=== PATIENT | female | born 1985 | race African-American/Black ===

== ENCOUNTER 2019-03-14 20:55 | Emergency (ER) | payer MEDICAID ==
[~2019-03-14] VITALS: Ht 170.2 cm; Wt 68.0 kg
[2019-03-14] MEDS ORDERED: ACETAMINOPHEN 325MG TABLET PO ONE (23:45)
[2019-03-15 00:03] LABS: BASOPHILS % 0.9 % (0.0-2.0); HEMATOCRIT. 37.6 % (36.0-48.0); HEMOGLOBIN. 12.3 g/dL (12.0-16.0); LYMPHOCYTES % 43.6 % (20.0-50.0); MEAN CORPUSCULAR HEMOGLOBIN 27.1 pg (28.0-32.0); MEAN CORPUSCULAR VOLUME 82.9 fL (81.0-99.0); MEAN PLATELET VOLUME 9.5 fl (7.4-10.4); MONOCYTES % 10.1 % (2.0-8.0); NEUTROPHILS % 44.4 % (40.0-76.0); PLATELET 170 x1000/uL (130-400); RED BLOOD CELL COUNT 4.53 mill/uL (4.2-5.4); RED CELL DISTRIBUTION WIDTH 14.6 % (11.6-14.6)
[2019-03-15 00:06] LABS: CHLORIDE 108 mEq/L (98-107)
[2019-03-15] MEDS ORDERED: CEFTRIAXONE SODIUM 250 MG/VIAL IM ONE (00:15)
[2019-03-15] MEDS ORDERED: AZITHROMYCIN 500 MG TABLET PO ONE (00:15)
[2019-03-15] MEDS ORDERED: DIPHENHYDRAMINE 25MG CAPSULE PO ONE (00:15)
[2019-03-15 00:18] LABS: HCG SCREEN NEGATIVE
[2019-03-15 00:51] LABS: CLARITY URINE CLEAR (CLEAR); COLOR URINE YELLOW (YELLOW); KETONES URINE NEGATIVE (NEGATIVE); LEUKOCYTE ESTERASE URINE TRACE (NEGATIVE); NITRITE URINE NEGATIVE (NEGATIVE); OCCULT BLOOD URINE NEGATIVE (NEGATIVE); PH URINE 6.5 (4.5-8.0); PROTEIN URINE NEGATIVE (NEGATIVE); SPECIFIC GRAVITY URINE 1.024 (1.005-1.030)
[2019-03-15 12:50] VITALS: BP 118/80
[2019-03-18 04:21] LABS: CHLAMYDIA TRACHOMATIS NAA Negative (Negative); NEISSERIA GONORRHOEAE NAA Negative (Negative)
== END 2019-03-15 13:00 | disposition home or self-care (01) ==
LOC: ER 20:55
DX: S60.511A Abrasion of right hand, initial encounter (principal); N76.0 Acute vaginitis; N39.0 Urinary tract infection, site not specified; R07.89 Other chest pain; J45.909 Unspecified asthma, uncomplicated; I10 Essential (primary) hypertension; R01.1 Cardiac murmur, unspecified; F17.200 Nicotine dependence, unspecified, uncomplicated; Z88.5 Allergy status to narcotic agent; Z91.040 Latex allergy status; Y04.0XXA Assault by unarmed brawl or fight, initial encounter; Y93.89 Activity, other specified; Y92.89 Other specified places as the place of occurrence of the external cause; Y99.8 Other external cause status
CPT/HCPCS: 36415; 71045; 80053; 81003; 81025; 83690; 84703; 85025; 87210; 87491; 87591; 93005; 96372; 99284; J0696; Q0163; Z7610

== ENCOUNTER 2019-03-19 23:16 | Emergency (ER) | payer MEDICAID | END 2019-03-20 00:31 | disposition left against medical advice (07) | LOC: ER 23:16 | DX: M79.18 Myalgia, other site (principal); Z53.21 Procedure and treatment not carried out due to patient leaving prior to being seen by health care provider ==

== ENCOUNTER 2019-07-28 02:00 | Emergency (ER) | payer MEDICAID ==
[~2019-07-28] VITALS: Ht 170.2 cm; Wt 78.0 kg
[2019-07-28] MEDS ORDERED: SODIUM CHLORIDE 0.9% 1,000 ML IV ONE (02:43)
[2019-07-28] MEDS ORDERED: DIPHENHYDRAMINE 50MG/ML VIAL IV ONE (02:45)
[2019-07-28] MEDS ORDERED: METOCLOPRAMIDE HCL 10MG/2ML VIAL IV ONE (02:45)
[2019-07-28] MEDS: LOPERAMIDE HCL 2MG CAPSULE PO PRN ×2 (03:26→04:49)
[2019-07-28] MEDS ORDERED: HYDROCODONE/ACETAMINOPHEN 5/325MG TABLET PO ONE (05:30)
[2019-07-28 12:13] VITALS: BP 115/60
== END 2019-07-28 12:16 | disposition home or self-care (01) ==
LOC: ER 02:00
DX: R19.7 Diarrhea, unspecified (principal); I10 Essential (primary) hypertension; E11.9 Type 2 diabetes mellitus without complications; J45.909 Unspecified asthma, uncomplicated; F31.9 Bipolar disorder, unspecified; Z91.040 Latex allergy status; Z88.6 Allergy status to analgesic agent
CPT/HCPCS: 96374; 96375; 99283; J1200; J2765; J7030

== ENCOUNTER 2019-07-28 14:35 | Emergency (ER) | payer MEDICAID ==
[~2019-07-28] VITALS: Ht 172.7 cm; Wt 72.0 kg
[2019-07-28 14:55] VITALS: BP 137/75
[2019-07-28] MEDS ORDERED: NAPROXEN 250MG TABLET PO ONE (15:45)
== END 2019-07-28 16:18 | disposition home or self-care (01) ==
LOC: ER 14:35
DX: G43.909 Migraine, unspecified, not intractable, without status migrainosus (principal); E11.9 Type 2 diabetes mellitus without complications; I10 Essential (primary) hypertension; F31.9 Bipolar disorder, unspecified; J45.909 Unspecified asthma, uncomplicated; Z88.6 Allergy status to analgesic agent; Z91.040 Latex allergy status
CPT/HCPCS: 99283

== ENCOUNTER 2019-07-28 16:55 | Emergency (ER) | payer MEDICAID ==
[~2019-07-28] VITALS: Ht 167.6 cm; Wt 74.0 kg
[2019-07-28] MEDS ORDERED: ASPIRIN 81MG TABLET PO ONE (18:30)
[2019-07-28 18:59] LABS: BASOPHILS % 0.8 % (0.0-2.0); EOSINOPHILS % 0.7 % (0.0-5.0); HEMOGLOBIN. 12.9 g/dL (12.0-16.0); LYMPHOCYTES % 43.7 % (20.0-50.0); MEAN CORPUSCULAR HEMOGLOBIN 27.7 pg (28.0-32.0); MEAN CORPUSCULAR VOLUME 83.5 fL (81.0-99.0); MEAN PLATELET VOLUME 9.5 fl (7.4-10.4); MONOCYTES % 10.8 % (2.0-8.0); PLATELET 188 x1000/uL (130-400); RED BLOOD CELL COUNT 4.67 mill/uL (4.2-5.4); RED CELL DISTRIBUTION WIDTH 14.6 % (11.6-14.6)
[2019-07-28 19:04] LABS: CHLORIDE 106 mEq/L (98-107)
[2019-07-28 19:12] LABS: ETHANOL BLOOD < 10 mg/dL
[2019-07-28 21:23] LABS: *AMPHETAMINES SCREEN URINE NEGATIVE (NEGATIVE); *BARBITURATES SCREEN URINE NEGATIVE (NEGATIVE); *BENZODIAZEPINES SCREEN URINE NEGATIVE (NEGATIVE); *COCAINE SCREEN URINE NEGATIVE (NEGATIVE)
[2019-07-28 21:24] LABS: METHADONE URINE SCREEN NEGATIVE (NEGATIVE); PHENCYCLIDINE URINE SCREEN NEGATIVE (NEGATIVE)
[2019-07-28 21:27] LABS: CANNABINOID URINE SCREEN PRESUMTIVE POSITIVE (NEGATIVE); OPIATES URINE SCREEN PRESUMTIVE POSITIVE (NEGATIVE)
[2019-07-29 07:30] VITALS: BP 127/86
[2019-07-29] MEDS ORDERED: ACETAMINOPHEN 325MG TABLET PO STA (07:57)
== END 2019-07-29 12:49 | disposition left against medical advice (07) ==
LOC: ER 19:38 → CANBEDREQ 07-29 00:52 → ER 07-29 12:49
DX: F41.9 Anxiety disorder, unspecified (principal); F31.9 Bipolar disorder, unspecified; J45.909 Unspecified asthma, uncomplicated; E11.9 Type 2 diabetes mellitus without complications; I10 Essential (primary) hypertension; Z88.6 Allergy status to analgesic agent; Z91.040 Latex allergy status; Z98.890 Other specified postprocedural states
CPT/HCPCS: 36415; 71045; 80053; 80305; 80307; 80320; 80329; 84484; 85025; 93005; 99284; Z7610; G0480